=== PATIENT | female | born 1990 | race Caucasian/White ===

== ENCOUNTER → 2020-08-15 | Outpatient (CLI) | payer OTHER ==
--- NOTE | 2020-08-15 12:32 | RAD ---
EXAM: Ultrasound OB Greater than 14 weeks INDICATION: Reason: ENCOUNTER FOR / Spl. Instructions: / History: TECHNIQUE: Real-time obstetrical ultrasound was performed with permanent freeze-frame documentation. COMPARISON: None. FINDINGS: POSITION: Variable HEART RATE: 150 bpm LOLI: 13.3 cm PLACENTA: Anterior CERVICAL LENGTH: 4.5 cm MATERNAL UTERUS: Unremarkable. MATERNAL ADNEXA: Unremarkable. AGE/DATES: Gestational Age by LMP: 20 weeks 5 days Gestation Age by US: 20 weeks 2 days EDC by LMP: 12/28/2020 EDC by US: December 31, 2020 WEIGHT: 233 grams +/- 49 grams PERCENTILE WEIGHT: Not estimated BIOMETRIC PARAMETERS: BPD: 4.9 cm corresponding with 20 weeks 5 days HC: 17.9 cm corresponding with 20 weeks 2 days AC: 15.2 cm corresponding with 20 weeks 3 days FL: 3.1 cm corresponding with 19 weeks 5 days ANATOMY: CARDIAC: Normal four chamber heart. Normal right ventricle outflow tract. The left ventricle outflow tract is not well seen. UMBILICAL CORD: Normal 3 vessel cord. Normal cord insertion. BRAIN: Unremarkable. NOSE/LIPS: Unremarkable. SPINE: Unremarkable. EXTREMITIES: Unremarkable. STOMACH: Unremarkable. KIDNEYS: Unremarkable. BLADDER: Unremarkable. IMPRESSION: Normal OB ultrasound demonstrating a single viable fetus in variable position. Estimated gestational age of 20 weeks 2 days and EDC of December 31, 2020. Electronically signed by: Faith Evans MD (08/15/2020 12:29 PM) [id number]
== END | disposition home or self-care (01) ==
LOC: US 08:44
PROVIDERS: ATTEND Obstetrics & Gynecology
DX: Z34.92 Encounter for supervision of normal pregnancy, unspecified, second trimester (principal); Z3A.20 20 weeks gestation of pregnancy
CPT/HCPCS: 76805

== ENCOUNTER → 2020-10-02 | Outpatient (CLI) | payer OTHER ==
[2020-10-02 09:50] LABS: HEMATOCRIT 36.5 % (36.0-47.0); HEMOGLOBIN 12.7 g/dL (12.0-15.5); RED BLOOD COUNT 3.67 x10^6/uL (3.50-5.40); RED CELL DISTRIBUTION WIDTH 12.9 % (11.5-14.5); WHITE BLOOD COUNT 10.9 x10^3/uL (4.0-11.0)
== END ==
LOC: LAB 07:48
PROVIDERS: ATTEND Obstetrics & Gynecology
DX: Z34.92 Encounter for supervision of normal pregnancy, unspecified, second trimester (principal); Z3A.27 27 weeks gestation of pregnancy
CPT/HCPCS: 36415; 82950; 85027; 86787; 86803

== ENCOUNTER → 2020-12-19 | Outpatient (CLI) | payer OTHER | LOC: LAB 09:52 | PROVIDERS: ATTEND Obstetrics & Gynecology | DX: Z01.812 Encounter for preprocedural laboratory examination (principal); Z20.822 Contact with and (suspected) exposure to COVID-19 | CPT/HCPCS: U0003 ==